=== PATIENT | female | born 1970 | race Caucasian/White ===

== ENCOUNTER 2017-05-11 08:55 | Emergency (ER) | payer SELFPAY ==
[~2017-05-11] VITALS: Ht 147.3 cm; Wt 107.4 kg
[2017-05-11] MEDS ORDERED: SPIR50TA2 PO (10:11)
[2017-05-11] MEDS ORDERED: CARV6.252 PO (10:11)
[2017-05-11] MEDS ORDERED: HYDROcodone/APAP 7.5-325MG/15ML UDC PO ONE (11:00)
[2017-05-11] MEDS ORDERED: HYDROcodone/APAP 7.5-325MG/15ML UDC ONE (11:03)
[2017-05-11 11:07] VITALS: BP 161/95
== END 2017-05-11 11:28 | disposition home or self-care (01) ==
LOC: ED 11:22
DX: J02.8 Acute pharyngitis due to other specified organisms (principal); B96.89 Other specified bacterial agents as the cause of diseases classified elsewhere; H65.01 Acute serous otitis media, right ear; I11.0 Hypertensive heart disease with heart failure; I50.9 Heart failure, unspecified
CPT/HCPCS: 93005; 99283